=== PATIENT | male | born 2000 | race Caucasian/White ===

== ENCOUNTER 2020-05-01 00:47 | Emergency (ER) | payer OTHER ==
[~2020-05-01] VITALS: Ht 177.8 cm; Wt 70.5 kg
[2020-05-01 02:35] VITALS: BP 120/64; PULSE 84; TEMP 98
== END 2020-05-01 02:39 | disposition home or self-care (01) ==
LOC: COL.ER 00:47
DX: S71.112A Laceration without foreign body, left thigh, initial encounter (principal); F10.129 Alcohol abuse with intoxication, unspecified; W01.10XA Fall on same level from slipping, tripping and stumbling with subsequent striking against unspecified object, initial encounter